=== PATIENT | male | born 1955 | race Caucasian/White ===

== ENCOUNTER 2020-10-27 08:12 | Day surgery (SDC) | payer OTHER ==
[~2020-10-27] VITALS: Ht 182.9 cm; Wt 93.0 kg
[~2020-10-27 08:12] MED LIST: AMLO10 PO; MONT10T PO; Norco 5-325 Ta1 EACH PO; Simvastatin80 MG PO; TRIHYD253A PO
--- NOTE | 2020-10-27 10:23 | NUR ---
10/27/20 1023 Thao Ross PATIENT REFUSED PO FLUIDS
== END 2020-10-27 10:24 | disposition home or self-care (01) ==
LOC: ORSCSDS 08:12
PROVIDERS: Surgery
PROC: 0DJD8ZZ Inspection of Lower Intestinal Tract, Via Natural or Artificial Opening Endoscopic (ICD-10-PCS; principal; 2020-10-27 09:30)
DX: Z12.11 Encounter for screening for malignant neoplasm of colon (principal); K57.30 Diverticulosis of large intestine without perforation or abscess without bleeding; I10 Essential (primary) hypertension; E78.5 Hyperlipidemia, unspecified; G47.33 Obstructive sleep apnea (adult) (pediatric); F17.210 Nicotine dependence, cigarettes, uncomplicated; Z79.899 Other long term (current) drug therapy
CPT/HCPCS: J2704; J7120